=== PATIENT | male | born 1975 | race Caucasian/White ===

== ENCOUNTER 2021-04-14 17:47 | Emergency (ER) | payer OTHER, MEDICARE, MEDICAID, SELFPAY ==
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
[2021-04-14 17:54] VITALS: BP 141/97; PULSE 100; RESP 18; TEMP 36.7; O2SAT 95; BMI 29.5
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
[2021-04-14 19:20] VITALS: BP 165/105; PULSE 96; RESP 18; TEMP 37.1; O2SAT 99
[2021-04-14] MEDS: Ibuprofen 800 MG TABLET PO (19:32)
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
== END 2021-04-14 20:50 | disposition home or self-care (01) ==
PROVIDERS: Emergency Provider Emergency Medicine
DX: S46.912A Strain of unspecified muscle, fascia and tendon at shoulder and upper arm level, left arm, initial encounter (principal); S39.012A Strain of muscle, fascia and tendon of lower back, initial encounter; V43.62XA Car passenger injured in collision with other type car in traffic accident, initial encounter; Y93.89 Activity, other specified; Y92.414 Local residential or business street as the place of occurrence of the external cause; Y99.9 Unspecified external cause status
CPT/HCPCS: 72100; 73030; 99283; 99284

== ENCOUNTER 2024-07-25 16:49 | Emergency (ER) | payer OTHER, SELFPAY ==
[2024-07-25 16:53] VITALS: BP 145/83; PULSE 74; RESP 16; TEMP 37.4; O2SAT 98; BMI 28.2
--- NOTE | 2024-07-25 16:59 | ED_ITS ---
HPI - General Adult General Chief complaint: Extremity Injury, Lower Stated complaint: SWOLLEN KNEE /PAIN Time Seen by Provider: 07/25/24 20:37 Source: patient and family Limitations: language barrier History of Present Illness ED Provider: Kennedi Choi PA-C HPI narrative: 49-year-old otherwise healthy male presents with left knee redness and pain x3 days. Patient states he felt as if he was ?bitten by a bug?. He started scratching the left knee. Since, he has developed increasing redness, he had a pustule on his kneecap which he popped. Denies fever, denies inability to range the joint. Related Data Previous Rx's ?Medication ?Instructions ?Recorded naproxen 500 mg tablet (Naprosyn) 500 mg PO BID #20 tabs 04/14/21 doxycycline hyclate 100 mg capsule 100 mg PO BID #14 caps 07/25/24 Allergies Allergy/AdvReac Type Severity Reaction Status Date / Time No Known Allergies Allergy Verified 07/25/24 17:00 Review of Systems 2 Review of Systems: Yes all other systems are reviewed and are negative Constitutional: Constitutional: Denies fatigue and Denies fever(s) Cardiovascular: Cardiovascular: Denies chest pain and Denies dyspnea Respiratory: Respiratory: Denies cough and Denies dyspnea Musculoskeletal: Musculoskeletal: Reports arthralgias, Denies joint swelling, Denies numbness, Denies stiffness and Denies tingling Neurologic: Denies numbness and Denies tingling Endocrine: Endocrine: Denies fatigue PMF Past Medical History Attestation statement: The following information was validated with the patient. Social History Social History Smoked in Last 30 Days: No Use of substances other than those prescribed or required for medical reasons: No Advance Directives: No Advance Directives Information Provided: Yes Do you have a plan to hurt others: No Plan Physical Exam ED Vital Signs: Vital Signs - 24 hr 07/25/24 16:53 07/25/24 20:47 Temperature 99.4 F 99.8 F Pulse Rate 74 75 Respiratory Rate 16 17 Blood Pressure 145/83 H 130/75 Pulse Oximetry 98 98 Oxygen Delivery Method Room Air Room Air BMI result Body Mass Index 28.2 Const Other: Alert, well-appearing Orientation/consciousness: patient oriented x3 Resp Other: Nonlabored respirations Cardio Other: Normal peripheral perfusion Skin Other: Warm dry no rash Neuro General: patient oriented x3, no focal motor deficits and CN's II-XI intact bilaterally Extrem Other: Full flexion and extension of the left knee, patient is ambulatory, overlying erythema, there is a scab over the patella, no swelling of the site no fluctuance Psych Other: Calm cooperative Course Course Course Narrative: RME, this is a rapid medical exam performed by Abdirizak Shi please refer to primary provider for complete H&P- 49-year-old male presents for evaluation of left knee pain and swelling. He reports he thinks he was bit by something a few days ago and now the knee is edematous, erythematous and painful. On exam he has significant erythema to the left anterior knee over the patella and suprapatellar region. There does not appear to be any actual joint effusion, this appears to be above joint. He has good range of motion. Plan for labs including blood cultures Medical Decision Making Medical Decision Making MDM Narrative: 49-year-old otherwise healthy male presents with left knee redness and pain x3 days. Patient states he felt as if he was ?bitten by a bug?. He started scratching the left knee. Since, he has developed increasing redness, he had a pustule on his kneecap which he popped. Denies fever, denies inability to range the joint. No chronic issues History: Per patient I have considered the following differential diagnoses: Cellulitis, purulent cellulitis, septic joint Plan: Patient has cellulitis, no evidence of a septic effusion, we will treat with doxy. Screening labs were obtained from triage. There was no indication for imaging. I have independently reviewed the following tests: Labs: No leukocytosis, not anemic, no electrolyte abnormality, CRP 0.74 Lab Data 07/25/24 17:10 07/25/24 17:10 Labs: Lab Results 07/25/24 Range/Units 17:10 WBC 10.7 (4.8-10.8) X10*3/uL RBC 5.25 (4.60-5.80) X10*6/uL Hgb 14.8 (14.0-18.0) g/dl Hct 45.9 (42.0-52.0) % MCV 87.4 (80.0-98.0) fL MCH 28.2 (27.0-33.0) pg MCHC 32.2 (31.0-36.0) g/dl RDW 12.5 (11.0-16.0) % Plt Count 287 (160-400) X10*3/uL MPV 8.8 L (9.4-12.4) fL Immature Gran % (Auto) 0.5 H (0.0-0.4) % Neut % (Auto) 59.4 (45-73) % Lymph % (Auto) 27.3 (20-40) % [place] % (Auto) 10.7 (2-11) % Eos % (Auto) 1.5 (0-4) % Baso % (Auto) 0.6 (0-2) % Lymph # (Auto) 2.9 (1.2-4.9) X10*3/uL [place] # (Auto) 1.2 (0.1-1.2) X10*3/uL Eos # (Auto) 0.2 (0.0-0.4) X10*3/uL Baso # (Auto) 0.1 (0.0-0.2) X10*3/uL Abs Immat Gran (auto) 0.05 H (0.00-0.03) X10*3/uL Absolute Neuts (auto) 6.4 (2.0-8.3) x10*3/uL Absolute Nucleated RBC 0.000 (0.0-0.012) X10*3/uL Nucleated RBC % (auto) 0.0 (0.0-0.2) /100WBC ESR 4 (0-15) MM/HR Sodium 141 (135-145) mmol/L Potassium 4.0 (3.3-5.1) mmol/L Chloride 103 (96-108) mmol/L Carbon Dioxide 31 H (22-29) mmol/L Anion Gap 11 L (12-20) BUN 13 (9-16) mg/dL Creatinine 0.86 (0.5-1.4) mg/dL Estim Creat Clear Calc 137.7 Estimated GFR > 60 Random Glucose 102 (60-115) mg/dL Lactic Acid 1.0 (0.5-2.0) mmol/L Calcium 9.2 (8.4-10.2) mg/dL Total Bilirubin 0.4 (0.0-1.0) mg/dL AST 30 (5-37) U/L ALT 38 (0-40) U/L Alkaline Phosphatase 95 (39-117) U/L C-Reactive Protein 0.74 H (< or = 0.50) mg/dL Total Protein 7.0 (6.5-8.0) g/dL Albumin 4.3 (3.5-5.0) g/dL Lipase 48 (8-78) U/L Discharge Plan Discharge Clinical Impression: Cellulitis of left leg Patient Disposition: Home, Self-Care Instructions: Cellulitis (ED) Additional Instructions: You are being treated for cellulitis. See home care instructions. Take the doxycycline as directed and follow up with your primary care provider. You can use [id number] ibuprofen 600 mg taken every 6 hours with food, alternated with [id number] Tylenol 1000 mg taken every 8 hours, as needed for your discomfort. Prescriptions: New doxycycline hyclate 100 mg capsule 100 mg PO BID Qty: 14 0RF No Action naproxen [Naprosyn] 500 mg tablet 500 mg PO BID Qty: 20 0RF Print Language: Citizen [place]
[2024-07-25 17:16] LABS: MANUAL DIFF FLAG NO
[2024-07-25 17:21] LABS: Basophils Absolute Auto 0.1 X10*3/uL (0.0-0.2); Basophils Percent Auto 0.6 % (0-2); Eosinophils Absolute Auto 0.2 X10*3/uL (0.0-0.4); Eosinophils Percent Auto 1.5 % (0-4); Hematocrit 45.9 % (42.0-52.0); Hemoglobin 14.8 g/dl (14.0-18.0); Imm Gran Abs Auto 0.05 X10*3/uL (0.00-0.03); Imm Gran Pct Auto 0.5 % (0.0-0.4); Lymphocytes Absolute Auto 2.9 X10*3/uL (1.2-4.9); Lymphocytes Percent Auto 27.3 % (20-40); Mean Corpuscular HGB Conc 32.2 g/dl (31.0-36.0); Mean Corpuscular Hemoglobin 28.2 pg (27.0-33.0); Mean Corpuscular Volume 87.4 fL (80.0-98.0); Mean Platelet Volume 8.8 fL (9.4-12.4); Monocytes Absolute Auto 1.2 X10*3/uL (0.1-1.2); Monocytes Percent Auto 10.7 % (2-11); Neutrophils Absolute Auto 6.4 x10*3/uL (2.0-8.3); Neutrophils Percent Auto 59.4 % (45-73); Platelet Count 287 X10*3/uL (160-400); Red Blood Count 5.25 X10*6/uL (4.60-5.80); Red Cell Distribution Width 12.5 % (11.0-16.0); White Blood Count 10.7 X10*3/uL (4.8-10.8)
[2024-07-25 17:40] LABS: Albumin Level 4.3 g/dL (3.5-5.0); Anion Gap 11 (12-20); Aspartate Amino Transferase 30 U/L (5-37); Bilirubin Total 0.4 mg/dL (0.0-1.0); Blood Urea Nitrogen 13 mg/dL (9-16); C Reactive Protein 0.74 mg/dL (< or = 0.50); Calcium 9.2 mg/dL (8.4-10.2); Carbon Dioxide 31 mmol/L (22-29); Chloride 103 mmol/L (96-108); Creatinine Clr Calc Pharmacy 137.7; Estimated Glomerular Filt Rate > 60; Glucose Random 102 mg/dL (60-115); Lipase 48 U/L (8-78); Sodium 141 mmol/L (135-145)
[2024-07-25 17:43] LABS: Alanine Aminotransferase 38 U/L (0-40); Alkaline Phosphatase 95 U/L (39-117)
[2024-07-25 18:36] LABS: Erythrocyte Sedimentation Rate 4 MM/HR (0-15)
[2024-07-25 20:47] VITALS: BP 130/75; PULSE 75; RESP 17; TEMP 37.7; O2SAT 98
[2024-07-25] MEDS: Doxycycline Monohydrate 100 MG CAPSULE PO (21:55)
[2024-07-25 22:06] VITALS: BP 125/71; PULSE 74; RESP 16; TEMP 37.5; O2SAT 98
[2024-07-25 22:07] VITALS: BP 125/71; PULSE 74; RESP 16; TEMP 37.5; O2SAT 98
== END 2024-07-25 22:15 | disposition home or self-care (01) ==
PROVIDERS: Physician Assistant; Emergency Provider Emergency Medicine; PCP Internal Medicine
DX: L03.116 Cellulitis of left lower limb (principal); M25.562 Pain in left knee
CPT/HCPCS: 36415; 80053; 83605; 83690; 85025; 85652; 86140; 87040; 99283; 99284